=== PATIENT | male | born 1990 | race African-American/Black ===

== ENCOUNTER 2017-06-09 12:57 | Emergency (ER) | payer SELFPAY ==
[~2017-06-09] VITALS: Ht 180.3 cm; Wt 88.6 kg
[2017-06-09 13:00] VITALS: BP 133/59
[2017-06-09] MEDS ORDERED: ALBUTEROL SULFATE HFA 90 MCG/PUFF 8 GM INHALER IH ONE (13:00)
[2017-06-09] MEDS ORDERED: ALBU8HFA IH (13:03)
[2017-06-09] MEDS ORDERED: BECL8.7A7 IH (13:03)
[2017-06-09] MEDS ORDERED: AUD NEB (13:03)
== END 2017-06-09 16:29 | disposition left against medical advice (07) ==
LOC: EMS 13:00
DX: J45.909 Unspecified asthma, uncomplicated (principal); Z53.21 Procedure and treatment not carried out due to patient leaving prior to being seen by health care provider
CPT/HCPCS: J3535